=== PATIENT | female | born 2000 | race Caucasian/White ===

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

== ENCOUNTER 2025-06-25 14:00 | Outpatient (CLI) | payer BC, SELFPAY ==
--- OUTSIDE RECORDS SUMMARY | 2024-11-01 07:30 | XMS_ITS ---
[facility] Address [address] [facility] [address] [place] [id number] Care Team Providers Care Sales Solutions Associate Name Role Phone Carolyn Staley Primary Care Provider Gabbie Hoffman Unavailable [phone] Erick Love Unavailable [phone] Allergies No Known Allergies Results Component Value Reference Range Notes P-Vitamin D 25-Hydroxy Reviewed date:11/02/2024 03:43:41 PM Interpretation:23.4 Performing Lab: Notes/Report: Test performed by [facility] [address] [place] [address] , [address], [place] [address] Max Katz MD, Associate Professor Of Chemistry CLIA: [id number] Vitamin D 25-Hydroxy 23.4 30.0-100.0 ng/mL Interpretation [...] 90 days Active Vitamin D3 1.25 MG (89036 UT) 1 capsule Orally once a week 11/15/2023 Active Kyleena 19.5 MG 1 ea by intrauterine administration once Active Vital Signs Weight 214.6 lbs 11/01/2024 Blood pressure systolic 112 mm Hg 11/01/20 24 Blood pressure diastolic 74 mm Hg 024 Heart Rate 104 /min 11/01/2024 Height 62.50 in 11/01/2024 BMI 38.62 kg/m2 11/01/2024 Encounters Encounter Location Date Provider Diagnosis Holli 1210 [facility] 36 [facility] [address] [place], [place] [id number] 11/01/2024 Erick Love Depression with anxi ety [...] Up: 6 Months, Reason: Provider Name:Erick Humphries , 10/28/2025 01:45:00 PM, 12[address] [facility] 36 [facility], [address], [place], [place], [id number], Progress Notes * HILLARY ZHOUOB: 2 (24 yo F)Acc No.[id number]:11/01/2024 Progress Notes Patient: RUSH PRYOR Provider: Chana Love M.D. :2000 A ge:24 Y S ex:Female Date:11/01/2024 Address:[address] [place], [place] [address], [id number] Pcp:Carolyn Staley Subjective: * Chief Complaints: * [...] day , Taking Vitamin D3 1.25 MG (40553 UT) Capsule 1 capsule Orally once a [...] * Images: Billing Information: * Visit Code: 13274 Office Visit, Est Pt., Level 3. * Procedure Codes: * Electronic signature of Paige Love MD on 06/26/2025 at 12:14 PM EDT Sign off status: Pending * Provider: Chana Love M.D. Date: 1 01/02/2024 Generated for Yosi john/Saundra/Yusuf on: 0 06/26/2025 12:14 PM EDT History and Physical Notes * [...]
--- OUTSIDE RECORDS SUMMARY | 2025-04-29 05:00 | XMS_ITS ---
[facility] Address [address] [facility] [address] [place] [id number] Care Team Providers Care Concrete Inspector Name Role Phone Carolyn Staley Primary Care Provider [phone] Gabbie Hoffman Unavailable [phone] Erick Love Unavailable [phone] Allergies No Known Allergies Results Component Value Reference Range Notes P-Vitamin D 25-Hydroxy Reviewed date:04/30/2025 10:18:28 AM Interpretation: Performing Lab: Notes/Report: Test performed by [facility] [address] [place] [address] , [address], [place] [address] Max Katz MD, Lure Maker CLIA: [id number] Vitamin D 25-Hydroxy 28.5 30.0-100.0 ng/mL Interpretation of Vitamin D 25 OH: < 20 ng/mL - Deficiency 20 - 29 ng/mL - Insufficiency 30 - 100 ng/mL - Sufficiency > 100 ng/mL - Super-therapeutic- toxicity may occur above this level. Clinical correlation required. REASON FOR VISIT 6 months Medications Medication SIG (Take, Route, Frequency, Duration) Notes Start Date End Date Status Vitamin D3 1.25 MG (12630 UT) 1 capsule Orally once a week 11/15/2023 Active Venlafaxine HCl ER 150 MG 1 cap(s) orall y once a day; Duration: 90 days Active Kyleena 19.5 MG 1 ea by intrauterine administration once Active Vital Signs Weight 226.4 lbs 04/29/2025 Blood pressure systolic 114 mm Hg 04/29/20 25 Blood pressure diastolic 74 mm Hg 025 Heart Rate 97 /min 04/29/2025 Height 62.50 in 04/29/2025 BMI 40.74 kg/m2 04/29/2025 Encounters Encounter Location Date Provider Diagnosis Holli 1210 [facility] 36 [facility] [address] [place] [id number] 04/29/2025 Erick Love Depression with anxi ety F41.8 and Vitamin D deficiency E55.9 Assessments Encounter Date Diagnosis (ICD Code) Assessment Notes Treatment Notes Treatment Clinical Notes Section Notes 04/29/2025 Depression with anxiety (ICD-10 - F41.8) 04/29/2025 Vitamin D deficiency (ICD-10 - E55.9) Plan Of Treatment Medication Medication Name Sig Start Date Stop Date Notes Vitamin D3 1.25 MG (56557 UT) 1 capsule Orally once a week 11/15/2023 Venlafaxine HCl ER 150 MG 1 cap(s) orall y once a day; Duration: 90 days Next Appt Details Follow Up: 6 Months, Reason: Provider Name:Erick Lina Humphries , 10/28/2025 01:45:00 PM, 1210 [facility] 36 [facility], [address], [place], [id number], Progress Notes * NOHEMY ZHOUJAYDEOB: 2 (24 yo F)Acc No.[id number]:04/29/2025 Progress Notes Patient: RUSH PRYOR Provider: Chana Love M.D. :2000 A ge:24 Y S ex:Female Date:04/29/2025 Address:[address] [place], [place] [address] [place], [id number] Pcp:Carolyn Staley Subjective: * Chief Complaints: * 1 . 6 months. * HPI: P sychology: 24 year old female presents with c/o depression P t presents today for a 6-month check up. Pt sts that she is doing well and has no new concerns or complaints at this time. * ROS: D ERMATOLOGY: no R tracie. n o H suma. G ASTROENTEROLOGY: no N ausea. n o V omiting. U ROLOGY: no D ifficulty urinating. n o B lood in urine. * Medical History: V itamin D Deficiency, Depression. * Surgical History: A ppendectomy . * Hospitalization/Major Diagno stic Procedure: D enies Past Hospitalization. * Family History: F ather: alive 55 yrs. M other: alive 57 yrs. M aternal aunt: abdominal aortic aneurysm. [...] 1 cap(s) orally once a day , Not-Taking Vitamin D3 1.25 MG (82710 UT) Capsule 1 capsule Orally once a week , Medication List reviewed and reconciled with the patient * Allergies: N .K.D.A. Objective: * Vitals: W t: 226.4, Temp: 98.1, BP: 114/74, HR: 97, Nurse: ROHINI, Ht: 62.50, BMI:40.74. * Examination: P sychology: General Appearance: N AD. G rooming : a dequate.?Eye contact : n ormal. M ood : p leasant. H eart: R SR. ? Assessment: * Assessment: 1. D epression with anxiety - F41.8 (Primary) 2 . V itamin D deficiency - E55.9 Plan: * Treatment: 2. V itamin D deficiency Refill Vitamin D3 Capsule, 1.25 MG (08985 UT), 1 capsule, Orally, once a week, 13, Refills 1. ? L AB: P-Vitamin D 25-Hydroxy (Collection Date & Time - 04/29/2025 08:43 AM) Value Reference Range V itamin D 25-Hydroxy 28.5 L 30.0-100.0 - ng/mL * Haley Griffith 04/30/2025 10:1 8:12 AM EDT > see phone encounter * Procedure Codes: G 8783 BP SCR PRFRM RCMDD DEFIND SCR INTVL, G8752 MOST RECENT SYSTOLIC BP < 140MM HG, G8754 MOST RECENT DIASTOLIC BP < 90MM HG, 1036F TOBACCO NON-USER * Follow Up: 6 Months * Images: Billing Information: * Visit Code: 19825 Office Visit, Est Pt., Level 3. * Procedure Codes: G8783 BP SCR PRFRM RCMDD DEFIND SCR INTVL. G8752 MOST RECENT SYSTOLIC BP < 140MM HG. G8754 MOST RECENT DIASTOLIC BP < 90MM HG. 1036F TOBACCO NON-USER. * Electronic signature of Paige Love MD on 06/26/2025 at 12:14 PM EDT Sign off status: Pending * Provider: Chana Love M.D. Date: 0 04/29/2025 Generated for Yosi john/Saundra/Yusuf on: 0 06/26/2025 12:14 PM EDT History and Physical Notes * HPI (History of Present Illness) Category Sub-Category Detail Notes Category Not es Psychology depression Pt presents to y for a 6-month check up. Pt sts that she is doing well and has no new concerns or complaints at this time Examination Category Sub-Category Detail Notes Category Not es Psychology Heart: RSR General Appearance: NAD Grooming : adequate Eye contact : normal Mood : pleasant
--- OUTSIDE RECORDS SUMMARY | 2025-04-30 06:17 | XMS_ITS ---
Author Organization [facility] Address [address] [facility] [address] [place] [id number] Care Team Providers Care Wholesale Manager Name Role Phone Carolyn Staley Primary Care Provider [phone] Gabbie Hoffman Unavailable [phone] Erick Love Unavailable [phone] REASON FOR VISIT Test Results* Medications Medication SIG (Take, Route, Frequency, Duration) Notes Start Date End Date Status Vitamin D (Ergocalciferol) 1.25 MG (72252 UT) 1 capsule Orally weekly 04/30/2025 Active Encounters Encounter Location Date Provider Diagnosis Holli 1210 [facility] [address] [place] [id number] 04/30/2025 Erick Love Vitamin D deficiency E55.9 Assessments Encounter Date Diagnosis (ICD Code) Assessment Notes Treatment Notes Treatment Clinical Notes Section Notes 04/30/2025 Vitamin D deficiency (ICD-10 - E55.9) Plan Of Treatment Medication Medication Name Sig Start Date Stop Date Notes Vitamin D (Ergocalciferol) 1 .25 MG (92938 UT) 1 capsule Orally weekly 04/30/2025 Next Appt Details Provider Name:Erick Humphries ry, 10/28/2025 01:45:00 PM, 1210 [facility] 36 [facility], [address], [place], [phone], Progress Notes * WINNIENOHEMYJAYDEOB: 2 (24 yo F)Acc No.[id number]:04/30/2025 Patient: RUSH PRYOR :2000 A ge:24 Y S ex:Female Address:[facility] [address] [facility] [place] [address] * Refills Start Vitamin D (Ergocalciferol) Capsule, 1.25 MG (95383 UT), Orally, 13, 1 capsule, weekly, Refills=1 Subjective: * Chief Complaints: * T est Results* * Medical History: * Surgical History: * Hospitalization/Major Diagno stic Procedure: * Medications: Objective: * Vitals: * Physical Examination: Assessment: * Assessment: 1. V itamin D deficiency - E55.9 (Primary) Plan: * Treatment: * Procedure Codes: * true * Date: Generated for Yosi john/Saundra/Yusuf on: 0 06/26/2025 12:14 PM EDT
--- OUTSIDE RECORDS SUMMARY | 2025-06-26 12:14 | XMS_ITS | Patient Health Record ---
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 Name Role Phone Carolyn Staley Primary Care Provider Gabbie Hoffman Unavailable [phone] Erick Love Unavailable [phone] Allergies No Known Allergies Results Component Value Reference Range Notes P-Vitamin D 25-Hydroxy Reviewed date:11/02/2024 03:43:41 PM Interpretation:23.4 Performing Lab: Notes/Report: Test performed by [facility] [address] [place] [address] Tierra Cotton , [place] [address] Max Katz MD, Information Systems Security Analyst CLIA: [id number] Vitamin D 25-Hydroxy 23.4 30.0-100.0 ng/mL Interpretation of Vitamin D 25 OH: < 20 ng/mL - Deficiency 20 - 29 ng/mL - Insufficiency 30 - 100 ng/mL - Sufficiency > 100 ng/mL - Super-therapeutic- toxicity may occur above this level. Clinical correlation required. P-Vitamin D 25-Hydroxy Reviewed date:04/30/2025 10:18:28 AM Interpretation: Performing Lab: Notes/Report: Test performed by [facility] [address] [place], [place] [address] [address], [place] [address] Max Katz MD, Information Systems Security Analyst CLIA: [id number] Vitamin D 25-Hydroxy 28.5 30.0-100.0 ng/mL Interpretation of Vitamin D 25 OH: < 20 ng/mL - Deficiency 20 - 29 ng/mL - Insufficiency 30 - 100 ng/mL - Sufficiency > 100 ng/mL - Super-therapeutic- toxicity may occur above this level. Clinical correlation required. Reason For Referral No Information Medications Medication SIG (Take, Route, Frequency, Duration) Notes Start Date End Date Status Vitamin D3 1.25 MG (80217 UT) 1 capsule Orally once a week 11/15/2023 Active Venlafaxine HCl ER 150 MG 1 cap(s) orall y once a day; Duration: 90 days Active Vitamin D (Ergocalciferol) 1.25 MG (04203 UT) 1 capsule Orally weekly 04/30/2025 Acti ve Kyleena 19.5 MG 1 ea by intrauterine administration once Active Immunizations Vaccine Route Administration Date Status Comme nts COVID 19 [place] Unknown 11/11/2021 Administered Hep A- Pediatric IM Intramuscular 06/23/2018 Administered IPV IM Intramuscular 02/23/2007 Administered Menactra IM Intramuscular 09/13/2013 Administered MMR SC Subcutaneous 02/23/2007 Administered Tetanus Dtap-Daptacel (under 7yrs) IM Intramuscular 02/23/2007 Administered Tetanus Tdap-Adacel (over 7yrs) IM Intramuscular 09/13/2013 Administered Varivax SC Subcutaneous 09/13/2013 Administered Problems Problem Type SNOMED Code ICD Code Onset Dates Problem Status W/U Status Risk Notes Problem Vitamin D deficiency (05374832) Vitamin D deficiency (E55.9) Active confirmed Problem Vitamin B12 deficiency (598333330) Vitamin B12 deficiency (E53.8) Active confirmed Problem Mixed anxiety and depressive disorder (820722744) Depression with anxiety (F41.8) Active confirmed Problem Amenorrhea (86412367) Amenorrhea (N91.2) Active confirmed Vital Signs Heart Rate 97 /min 04/29/2025 Blood pressure diastolic 74 mm Hg 04/29/2025 Height 62.50 in 04/29/2025 Blood pressure systolic 114 mm Hg 04/29/2025 Weight 226.4 lbs 04/29/2025 BMI 40.74 kg/m2 04/29/2025 Encounters Encounter Location Date Provider Diagnosis [facility] [address] [place] [address], [place] [id number] 11/01/2024 E[place] Depression with anxi ety F41.8 and Vitamin D deficiency E55.9 [facility] [address] [facility] [address] [facility] [address] [place] [id number] 04/29/2025 Erickanabel Love Depression with anxi ety F41.8 and Vitamin D deficiency E55.9 [facility] [address] [facility] [address] [facility] [address] [place] [id number] 11/02/2024 [place] [facility] [address] [facility] [address] [facility] [address] [place] [id number] 04/30/2025 Erick Love Vitamin D deficiency E55.9 Assessments Encounter Date Diagnosis (ICD Code) Assessment Notes Treatment Notes Treatment Clinical Notes Section Notes 11/01/2024 Vitamin D deficiency (ICD-10 - E55.9) 11/01/2024 Depression with anxiety (ICD-10 - F41.8) 04/29/2025 Vitamin D deficiency (ICD-10 - E55.9) 04/29/2025 Depression with anxiety (ICD-10 - F41.8) 04/30/2025 Vitamin D deficiency (ICD-10 - E55.9) Plan Of Treatment Pending Test Test Name Order Date CBC 02/02/2021 COVID 19 nasal-PCR (SARS CoV-2) 02/03/20 21 Next Appt Details Provider Name:Erick Humphries ry, 10/28/2025 01:45:00 PM, [address] [facility] [address] [facility], [address], [place], [id number], Insurance Providers Payer Name Payer Address Payer Phone Subscriber Number Group Number Insured Name Patient Relationship to Insured Coverage Start Date Coverage End Date [employer] [address] [place] [address] [id number] RUSH ZHOU Self - patient is the insured Medical (General) History Medical History History ICD Code Vitamin D Deficiency depression Surgical History Surgery Date(Month/Year) Appendectomy
[2025-06-27 06:16] LABS: Neisseria gonorrhoeae, NAA Negative (Negative)
== END 2025-06-25 23:59 | disposition home or self-care (01) ==
LOC: LAB.DROPOF 06-26 12:12
PROVIDERS: PCP Obstetrics & Gynecology; Visit Provider Obstetrics & Gynecology
DX: R10.2 Pelvic and perineal pain (principal)
CPT/HCPCS: 87491; 87591

== ENCOUNTER 2025-06-27 13:40 | Outpatient (CLI) | payer BC, SELFPAY ==
--- OUTSIDE RECORDS SUMMARY | 2024-11-01 07:30 | XMS_ITS ---
[facility] Organization [facility] Address [address] [facility] [address] [place] [id number] Care Team Providers Care Technology Integration Specialist Name Role Phone Carolyn Staley Primary Care Provider [phone] Gabbie Hoffman Unavailable [phone] Erick Love Unavailable [phone] Allergies No Known Allergies Results Component Value Reference Range Notes P-Vitamin D 25-Hydroxy Reviewed date:11/02/2024 03:43:41 PM Interpretation:23.4 Performing Lab: Notes/Report: Test performed by [facility] [address] [place] [address] , [address], [place] [address] Max Katz MD, Snake Charmer CLIA: [id number] Vitamin D 25-Hydroxy 23.4 30.0-100.0 ng/mL Interpretation of Vitamin D 25 OH: < 20 ng/mL - Deficiency 20 - 29 ng/mL - Insufficiency 30 - 100 ng/mL - Sufficiency > 100 ng/mL - Super-therapeutic- toxicity may occur above this level. Clinical correlation required. REASON FOR VISIT 6 mos checkup Medications Medication SIG (Take, Route, Frequency, Duration) Notes Start Date End Date Status Venlafaxine HCl ER 150 MG 1 cap(s) orall y once a day; Duration: 90 days Active Vitamin D3 1.25 MG (20254 UT) 1 capsule Orally once a week 11/15/2023 Active Kyleena 19.5 MG 1 ea by intrauterine administration once Active Vital Signs Blood pressure systolic 112 mm Hg 11/01/20 24 Blood pressure diastolic 74 mm Hg 024 Heart Rate 104 /min 11/01/2024 Height 62.50 in 11/01/2024 Weight 214.6 lbs 11/01/2024 BMI 38.62 kg/m2 11/01/2024 Encounters Encounter Location Date Provider Diagnosis [facility] 1210 [facility] 36 [facility] [address] [place], [place] [id number] 11/01/2024 Erick Love Depression with anxi ety F41.8 and Vitamin D deficiency E55.9 Assessments Encounter Date Diagnosis (ICD Code) Assessment Notes Treatment Notes Treatment Clinical Notes Section Notes 11/01/2024 Depression with anxiety (ICD-10 - F41.8) 11/01/2024 Vitamin D deficiency (ICD-10 - E55.9) Plan Of Treatment Medication Medication Name Sig Start Date Stop Date Notes Venlafaxine HCl ER 150 MG 1 cap(s) orall y once a day; Duration: 90 days Next Appt Details Follow Up: 6 Months, Reason: Provider Name:Erick Humphries ry, 10/28/2025 01:45:00 PM, [address] [facility] 36 [facility], [address], [place], [place], [id number], Progress Notes * NOHEMY ZHOUONDOB: 2 (24 yo F)Acc No.[id number]:11/01/2024 Progress Notes Patient: RUSH PRYOR Provider: Chana Love M.D. :2000 A ge:24 Y S ex:Female Date:11/01/2024 Address:[address] [place], [place] [address], [id number] Pcp:Carolyn Staley Subjective: * Chief Complaints: * 1 . 6 mos checkup. * HPI: P sychology: 24 year old female presents with c/o depression P t here for 6 mo f/u. Pt states she is doing well on current dose of Venlafaxine and does not have any concerns today. * ROS: D ERMATOLOGY: no R tracie. n o H suma. G ASTROENTEROLOGY: no N ausea. n o V omiting. U ROLOGY: no D ifficulty urinating. n o B lood in urine. * Medical History: V itamin D Deficiency, Depression. * Surgical History: A ppendectomy . * Hospitalization/Major Diagno stic Procedure: D enies Past Hospitalization. * Family History: F ather: alive 54 yrs. M other: alive 56 yrs. M aternal aunt: abdominal aortic aneurysm. 4 brother(s) . . * Social History: C URRENT TOBACCO USE S moking Status: Patient does NOT smoke, Second hand smoke exposure: No. H ome smoke detector use: yes. * Medications: T aking Kyleena 19.5 MG Intrauterine Device 1 ea by intrauterine administration once , Taking Venlafaxine HCl ER 150 MG Capsule Extended Release 24 Hour 1 cap(s) orally once a day , Taking Vitamin D3 1.25 MG (22811 UT) Capsule 1 capsule Orally once a week , Medication List reviewed and reconciled with the patient * Allergies: N .K.D.A. Objective: * Vitals: W t:214.6, Temp:97.7, BP:112/74, HR:104, Nurse:tunde, Ht: 62.50, BMI:38.62. * Examination: P sychology: General Appearance: N AD. G rooming : a dequate.?Eye contact : chase onofre. M ood : p leasant. H eart: R SR. ? Assessment: * Assessment: 1. D epression with anxiety - F41.8 (Primary) 2 . V itamin D deficiency - E55.9 Plan: * Treatment: 2. V itamin D deficiency L AB: P-Vitamin D 25-Hydroxy (Collection Date & Time - 11/01/2024 10:50 AM) 2 3.4 Value Reference Range V itamin D 25-Hydroxy 23.4 L 30.0-100.0 - ng/mL * Lakia Heredia 11/02/2024 3:43: 34 PM >See phone encounter * Follow Up: 6 Months * Images: Billing Information: * Visit Code: 16722 Office Visit, Est Pt., Level 3. * Procedure Codes: * Electronic signature of Paige Love MD on 06/27/2025 at 01:43 PM EDT Sign off status: Pending * Provider: Chana Love M.D. Date: 1 01/02/2024 Generated for Yosi john/Saundra/Yusuf on: 0 06/27/2025 01:43 PM EDT History and Physical Notes * HPI (History of Present Illness) Category Sub-Category Detail Notes Category Not es Psychology depression Pt here for 6 mo f/u. Pt states she is doing well on current dose of Venlafaxine and does not have any concerns today Examination Category Sub-Category Detail Notes Category Not es Psychology Heart: RSR General Appearance: NAD Grooming : adequate Eye contact : normal Mood : pleasant
--- OUTSIDE RECORDS SUMMARY | 2025-04-29 05:00 | XMS_ITS ---
[facility] Address [address] [facility] [address] [place] [id number] Care Team Providers Care Announcer Name Role Phone Carolyn Staley Primary Care Provider [phone] Gabbie Hoffman Unavailable [phone] Erick Love Unavailable [phone] Allergies No Known Allergies Results Component Value Reference Range Notes P-Vitamin D 25-Hydroxy Reviewed date:04/30/2025 10:18:28 AM Interpretation: Performing Lab: Notes/Report: Test performed by [facility] [address] [place] [address] , [address], [place] [address] Max Katz MD, Cardroom Drawing Runner CLIA: [id number] Vitamin D 25-Hydroxy 28.5 30.0-100.0 ng/mL Interpretation [...] End Date Status Vitamin D3 1.25 MG (75924 UT) 1 capsule Orally once a week 11/15/2023 Active Venlafaxine HCl ER 150 MG 1 cap(s) orall y once a day; Duration: 90 days Active Kyleena 19.5 MG 1 ea by intrauterine administration once Active Vital Signs Blood pressure systolic 114 mm Hg 04/29/20 25 Blood pressure diastolic 74 mm Hg 025 Heart Rate 97 /min 04/29/2025 Height 62.50 in 04/29/2025 Weight 226.4 lbs 04/29/2025 BMI 40.74 kg/m2 04/29/2025 Encounters Encounter Location Date Provider Diagnosis Holli 1210 [facility] 36 [facility] [address] [place] [id number] 04/29/2025 Erick Love Depression with anxi ety F41.8 and Vitamin D deficiency E55.9 Assessments Encounter Date Diagnosis (ICD Code) Assessment Notes Treatment Notes Treatment Clinical Notes Section Notes 04/29/2025 Depression with anxiety (ICD-10 - F41.8) 04/29/2025 Vitamin D deficiency (ICD-10 - E55.9) Plan Of Treatment Medication Medication Name Sig Start Date Stop Date Notes Vitamin D3 1.25 MG (34508 UT) 1 capsule Orally once a week 11/15/2023 Venlafaxine HCl ER 150 MG 1 cap(s) orall y once a day; Duration: 90 days Next Appt Details Follow Up: 6 Months, Reason: Provider Name:Erick Lina Humphries , 10/28/2025 01:45:00 PM, 1210 [facility] 36 [facility], [address], [place], [id number], Progress Notes * NOHEMY ZHOUJAYDEOB: 2 (24 yo F)Acc No.[id number]:04/29/2025 Progress Notes Patient: RUSH PRYOR Provider: Chana Love M.D. :2000 A ge:24 Y S ex:Female Date:04/29/2025 Address:[facility] [place] Pcp:Carolyn Staley Subjective: * Chief Complaints: * [...] day , Not-Taking Vitamin D3 1.25 MG (78182 UT) Capsule 1 capsule Orally once a [...] deficiency Refill Vitamin D3 Capsule, 1.25 MG (58042 UT), 1 capsule, Orally, once a week, [...] * Images: Billing Information: * Visit Code: 43134 Office Visit, Est Pt., Level 3. * Procedure Codes: G8783 BP SCR PRFRM RCMDD DEFIND SCR INTVL. G8752 MOST RECENT SYSTOLIC BP < 140MM HG. G8754 MOST RECENT DIASTOLIC BP < 90MM HG. 1036F TOBACCO NON-USER. * Electronic signature of Paige Love MD on 06/27/2025 at 01:43 PM EDT Sign off status: Pending * Provider: Chana Love M.D. Date: 04/29/2025 Generated for Yosi john/Saundra/Yusuf on: 0 06/27/2025 [...]
--- OUTSIDE RECORDS SUMMARY | 2025-04-30 06:17 | XMS_ITS ---
Author Organization [facility] Address 1210 [facility] [address] [place] [id number] Care Team Providers Care Mechanic Name Role Phone Carolyn Staley Primary Care Provider Gabbie Hoffman Unavailable [phone] Erick Love Unavailable [phone] REASON FOR VISIT Test Results* Medications Medication SIG (Take, Route, Frequency, Duration) Notes Start Date End Date Status Vitamin D (Ergocalciferol) 1.25 MG (60328 UT) 1 capsule Orally weekly 04/30/2025 Active Encounters Encounter Location Date Provider Diagnosis Holli 1210 [facility] [address] [place] [id number] 04/30/2025 Erick Love Vitamin D deficiency E55.9 Assessments Encounter Date Diagnosis (ICD Code) Assessment Notes Treatment Notes Treatment Clinical Notes Section Notes 04/30/2025 Vitamin D deficiency (ICD-10 - E55.9) Plan Of Treatment Medication Medication Name Sig Start Date Stop Date Notes Vitamin D (Ergocalciferol) 1 .25 MG (76278 UT) 1 capsule Orally weekly 04/30/2025 Next Appt Details Provider Name:Erick Humphries ry, 10/28/2025 01:45:00 PM, 1210 [facility] 36 [facility], [address], [place], [id number], Progress Notes * WINNIENOHEMYJAYDEOB: 2 (24 yo F)Acc No.[id number]:04/30/2025 Patient: RUSH PRYOR :2000 A ge:24 Y S ex:Female Address:[facility] [address] [facility] [place] [address] * Refills Start Vitamin D (Ergocalciferol) Capsule, 1.25 MG (80769 UT), Orally, 13, 1 capsule, weekly, Refills=1 Subjective: * Chief Complaints: * T est Results* * Medical History: * Surgical History: * Hospitalization/Major Diagno stic Procedure: * Medications: Objective: * Vitals: * Physical Examination: Assessment: * Assessment: 1. V itamin D deficiency - E55.9 (Primary) Plan: * Treatment: * Procedure Codes: * true * Date: Generated for Yosi john/Saundra/Yusuf on: 0 06/27/2025 01:43 PM EDT
--- OUTSIDE RECORDS SUMMARY | 2025-06-27 13:43 | XMS_ITS | Patient Health Record ---
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 Name Role Phone Carolyn Staley Primary Care Provider [phone] Gabbie Hoffman Unavailable [phone] Erick Love Unavailable [phone] Allergies No Known Allergies Results Component Value Reference Range Notes P-Vitamin D 25-Hydroxy Reviewed date:11/02/2024 03:43:41 PM Interpretation:23.4 Performing Lab: Notes/Report: Test performed by [facility] [address] [place] [address] Tierra Cotton , [place] [address] Max Katz MD, It Web Development Consultant CLIA: [id number] Vitamin D 25-Hydroxy 23.4 30.0-100.0 ng/mL Interpretation of Vitamin D 25 OH: < 20 ng/mL - Deficiency 20 - 29 ng/mL - Insufficiency 30 - 100 ng/mL - Sufficiency > 100 ng/mL - Super-therapeutic- toxicity may occur above this level. Clinical correlation required. P-Vitamin D 25-Hydroxy Reviewed date:04/30/2025 10:18:28 AM Interpretation: Performing Lab: Notes/Report: Test performed by [facility] [address] [place], [place] [address] [address], [place] [address] Max Katz MD, It Web Development Consultant CLIA: [id number] Vitamin D 25-Hydroxy 28.5 30.0-100.0 ng/mL Interpretation [...] End Date Status Vitamin D3 1.25 MG (62641 UT) 1 capsule Orally once a week 11/15/2023 Active Venlafaxine HCl ER 150 MG 1 cap(s) orall y once a day; Duration: 90 days Active Vitamin D (Ergocalciferol) 1.25 MG (69352 UT) 1 capsule Orally weekly 04/30/2025 Acti [...] Status Risk Notes Problem Vitamin D deficiency (20669563) Vitamin D deficiency (E55.9) Active confirmed Problem Vitamin B12 deficiency (610626970) Vitamin B12 deficiency (E53.8) Active confirmed Problem Mixed anxiety and depressive disorder (905574083) Depression with anxiety (F41.8) Active confirmed Problem Amenorrhea (N91.2) Active confirmed Vital Signs Heart Rate 97 /min 04/29/2025 Blood pressure diastolic 74 mm Hg 04/29/2025 Height 62.50 in 04/29/2025 Blood pressure systolic 114 mm Hg 04/29/2025 Weight 226.4 lbs 04/29/2025 BMI 40.74 kg/m2 04/29/2025 Encounters Encounter Location Date Provider Diagnosis [facility] [address] [id number] 11/01/2024 Erick [place] Depression with anxi ety F41.8 and Vitamin D deficiency E55.9 [facility] [address] [facility] [address] [place] [id number] 04/29/2025 Erickanabel Love Depression with anxi ety F41.8 and Vitamin D deficiency E55.9 [facility] [address] [facility] [address] [facility] [address] [place] [id number] 11/02/2024 Erickanabel FrancisEdelstein [facility] [address] [facility] [address] [facility] [address] [place] [id number] 04/30/2025 Erickanabel Love Vitamin D deficiency E55.9 Assessments Encounter [...] Name:Erick Humphries ry, 10/28/2025 01:45:00 PM, [address] [facility] [address] [facility], [address], [place], [id number], Insurance Providers Payer Name Payer Address Payer Phone Subscriber Number Group Number Insured Name Patient Relationship to Insured Coverage Start Date Coverage End Date [employer] [address] [place] [address] [id number] RUSH ZHOU Self - patient is the insured Medical (General) History Medical History History ICD Code Vitamin D Deficiency depression Surgical History Surgery Date(Month/Year) Appendectomy
--- NOTE | 2025-06-27 14:00 | US_ITS ---
PROCEDURE: US TRANSVAGINAL CLINICAL INDICATION: IUD placement COMPARISON: No exams were available for comparison FINDINGS: Transvaginal sonographic images of the pelvis were obtained. UTERUS: 6.6 cm x 3.80 cmx 2.7 cm anteverted with a thin endometrial thickness. There is an IUD within the uterine cavity in the correct position. LEFT OVARY: 2.6 cmx1.6 cmx1.6cm with a volume of 3.6ml. There are multiple small peripheral follicles. RIGHT OVARY: 3.8 cmx 3.4cmx3.1cm with a volume of 21.3ml. There is a dominant follicle measuring 2.6 cm x 2.3 cm x 1.9 cm. Both ovaries are seen and appear normal. Doppler flow to both ovaries are seen. There is no fluid in the cul-de-sac. IMPRESSION: 1. Anteverted uterus normal in shape and size. The endometrium is thin. There is an IUD within the uterine cavity in the correct position. 2. Both ovaries are seen and appear normal. The right ovary has a dominant follicle measuring 2.6 cm. 3. No fluid in the cul-de-sac. Dictated by: Tone Barry MD 06/27/2025 19:52 Tone Barry MD in OV 06/27/2025 19:52
== END 2025-06-27 23:59 | disposition home or self-care (01) ==
LOC: RAD 13:41
PROVIDERS: PCP Family Medicine; Visit Provider Obstetrics & Gynecology
DX: Z30.430 Encounter for insertion of intrauterine contraceptive device (principal)
CPT/HCPCS: 76830